=== PATIENT | female | born 2000 | race Caucasian/White ===

== ENCOUNTER 2019-03-28 05:51 | Day surgery (SDC) | payer BC ==
[2019-03-19 15:49] VITALS: BMI 39.9
[2019-03-28] MEDS ORDERED: VANCOMYCIN 1,000 MG VIAL (RESTRICTED TO ID ONLY) ONE (07:02)
[2019-03-28] MEDS ORDERED: PROPOFOL 20 ML ONE ×2 (07:04→08:04)
[2019-03-28] MEDS ORDERED: MIDAZOLAM HCL 2 MG/2 ML SINGLE DOSE VIAL ONE ×2 (07:04→07:13)
[2019-03-28] MEDS ORDERED: SUCCINYLCHOLINE CHLORIDE 200 MG/10 ML SYRINGE ONE (07:04)
[2019-03-28] MEDS ORDERED: SCOPOLAMINE HYDROBROMIDE 1 PATCH PATCH.TD72 ONE (07:10)
--- NOTE | 2019-03-28 07:12 | HP ---
Admitting History and Physical - Primary Care Physician PCP: Art Thapa - Admission Chief Complaint: Right knee ACL tear w/ instability History of Present Illness: 18 yo female with right knee acl tear. Followed by Dr. Velasquez (Ortho). Patient initially treated with conservative methods because she had no issues of instability. However, she returned to Dr. Velasquez office after she twisted her knee and felt it buckle. Subsequently developing swelling and increased pain in her right knee. 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: Alzheimer's, CVA, Dementia, Migraine, Multiple Sclerosis, Peripheral Neuropathy, Parkinson's, Seizure, Syncope, TIA, Vertigo, Other Cardiovascular: No: AFIB, Aneurysm, Aortic Insufficiency, Aortic Stenosis, CAD, CHF, Deep Vein Thrombosis, HTN, Hyperlipdemia, ID, Mitral Insufficiency, Mitral Stenosis, Murmur, Pulmonary Hypertension, Other Pulmonary: No: Asthma, Bronchitis, Cancer, COPD, O2 Dependent, Pneumonia, Previously Intubated, Pulmonary Embolus, Pulmonary Fibrosis, Sleep Apnea, Other Gastrointestinal: Yes: Other (Obese) Renal/: No: Renal Failure, Renal Inusuff, BPH, Cancer, Hematuria, Hemodialysis , Neurogenic Bladder, Renal Calculi, UTI, Other Reproductive: No: Ectopic , Endometriosis, Fibroids, PID, Polycystic Ovary Syndrome, Postmenopausal, Other ...LMP: 03/12/19 ...: No Heme/Onc: No: Anemia, B12 Deficiency, Bleeding Disorder, Cancer, Current Chemotherapy, Current Radiation Therapy, Hemochromatosis, Hypercoaguable State, Myeloproliferative Synd, Sickle Cell Disease, Sickle Cell Trait, Thrombocytopenia, Other Infectious Disease: No: AIDS, C-Diff, Herpes Zoster, HIV, MRSA, STD's, Tuberculosis, VREF, Other Psych: No: Addictions, Anxiety, Bipolar, Depression, Panic, Psychosis, Schizophrenia, Other Musculoskeletal: No: Bursitis, Chronic low back pain, Hemiparesis, Hemiplegia, Osteoarthritis, Paraplegia, Other Rheumatology: No: Fibromyalgia, Gout, Lupus, Rheumatoid Arthritis, Sarcoidosis, Vasculitis, Other ENT: No: Allergic Rhinitis, Sinusitis, Other Endocrine: No: Elgin's Disease, Burton's Disease, Diabetes Insipidus, Diabetes Mellitus, Hyperparathyroidism, Hyperthyroidism, Hypothyroidism, Osteopenia, SIADH, Other Dermatology: No: Basal Cell, Cellulitis, Eczema, Melanoma, Psoriasis, Squamous Cell, Other - Past Surgical History Past Surgical History: Yes: None - Smoking History Smoking history: Never smoked Have you smoked in the past 12 months: No - Alcohol/Substance Use Hx Alcohol Use: Yes (SOCIAL) - Social History Usual Living Arrangement: Yes: With Parent ADL: Independent History of Recent Travel: No Home Medications - Allergies Allergies/Adverse Reactions: Allergies Allergy/AdvReac Type Severity Reaction Status Date / Time No Known Allergies Allergy Verified 03/28/19 06:32 - Home Medications Home Medications: Ambulatory Orders Fexofenadine HCl [Leticia Allergy] 1 tab PO DAILY 03/19/19 Family Disease History - Family Disease History Family History: Unremarkable Review of Systems - Review of Systems Constitutional: reports: No Symptoms Eyes: reports: No Symptoms HENT: reports: No Symptoms Neck: reports: No Symptoms Cardiovascular: reports: No Symptoms Respiratory: reports: No Symptoms Gastrointestinal: reports: No Symptoms Genitourinary: reports: No Symptoms Breasts: reports: No Symptoms Reported Musculoskeletal: reports: No Symptoms Integumentary: reports: No Symptoms Neurological: reports: No Symptoms Endocrine: reports: No Symptoms Hematology/Lymphatic: reports: No Symptoms Psychiatric: reports: No Symptoms Physical Examination Vital Signs: Vital Signs Temperature 98.1 F 03/28/19 06:34 Pulse Rate 88 03/28/19 06:34 Respiratory Rate 16 03/28/19 06:34 Blood Pressure 131/93 03/28/19 06:34 O2 Sat by Pulse Oximetry (%) 99 03/28/19 06:43 Constitutional: Yes: Well Nourished, No Distress, Calm Eyes: Yes: WNL, Conjunctiva Clear, EOM Intact HENT: Yes: WNL, Atraumatic, Normocephalic Neck: Yes: WNL, Supple, Trachea Midline Cardiovascular: Yes: WNL, Regular Rate and Rhythm Respiratory: Yes: WNL, Regular, CTA Bilaterally Gastrointestinal: Yes: WNL, Normal Bowel Sounds, Soft, Abdomen, Obese Renal/: Yes: WNL Musculoskeletal: Yes: Other (RLE small knee effusion. Full extension. Normal Flexion. Tomer 3+ with no end point. No valgus or varus laxity) Edema: No Peripheral Pulses WNL: Yes Peripheral Pulses: Left Radial: 2+, Right Radial: 2+, Left Doralis Pedis: 2+, Right Dorsalis Pedis: 2+, Left Femoral: 2+, Right Femoral: 2+ Integumentary: Yes: WNL Neurological: Yes: WNL, Alert, Oriented ...Motor Strength: WNL Psychiatric: Yes: WNL, Alert, Oriented Problem List - Problems (1) Complete tear of anterior cruciate ligament of right knee Assessment/Plan: 19 yo female with right knee acl tear with instability. Her initial H&P which is located in her paper chart is out of date. After speaking with the patient, no new complaints or medications since completion of initial H&P. All information contained within this H&P was obtained from the first H&P. Patient her today for elective repair of her right knee ACL tear. All risks, benefits and alternatives have been discussed with patient by Dr. Velasquez. Patient wishes to proceed with surgery. Code(s): S83.511A - SPRAIN OF ANTERIOR CRUCIATE LIGAMENT OF RIGHT KNEE, INIT (2) Instability of right knee joint Code(s): M25.361 - OTHER INSTABILITY, RIGHT KNEE (3) Obese body habitus Code(s): E66.9 - OBESITY, UNSPECIFIED
[2019-03-28] MEDS ORDERED: BUPIVACAINE LIPOSOME/PF (EXPAREL) 266 MG/20 ML VIAL ONE (07:13)
[2019-03-28] MEDS ORDERED: SODIUM CHLORIDE 0.9% P/F 10 ML VIAL IJ ONE (07:14)
[2019-03-28] MEDS ORDERED: LIDOCAINE HCL/PF 2% SDV 5ML VIAL ONE (08:04)
[2019-03-28] MEDS ORDERED: DEXAMETHASONE SOD PHOSPHATE 4 MG/1 ML VIAL ONE (08:08)
[2019-03-28] MEDS ORDERED: ONDANSETRON 4 MG/2 ML VIAL ONE (08:08)
[2019-03-28] MEDS ORDERED: ceFAZolin SODIUM 1 GM VIAL ONE (08:08)
[2019-03-28] MEDS ORDERED: TRANEXAMIC ACID 1000 MG/10 ML VIAL ONE (08:08)
[2019-03-28] MEDS ORDERED: DESFLURANE GAS 240 ML BOTTLE IH ONE (09:12)
--- NOTE | 2019-03-28 09:36 | OP ---
Operative Note - Note: Operative Date: 03/28/19 Pre-Operative Diagnosis: Right knee instability s/p ACL tear Operation: Right knee ACLR Post-Operative Diagnosis: Same as Pre-op Surgeon: Edgar Velasquez Clinical Social Worker: Kasi Black Anesthesiologist/ADVERTISING COLUMNIST: Jason Chin Anesthesia: General Operative Report Dictated: Yes
--- NOTE | 2019-03-28 09:39 | DS ---
Physical Examination Vital Signs: Vital Signs Temperature 98.1 F 03/28/19 06:34 Pulse Rate 88 03/28/19 06:34 Respiratory Rate 16 03/28/19 06:34 Blood Pressure 131/93 03/28/19 06:34 O2 Sat by Pulse Oximetry (%) 99 03/28/19 06:43 Discharge Summary Reason For Visit: ANTERIOR CRUCIATE LIGAMENT TEAR RIGHT KNEE Current Active Problems Complete tear of anterior cruciate ligament of right knee (Acute) Instability of right knee joint (Acute) Obese body habitus (Acute) Condition: Stable - Instructions Diet, Activity, Other Instructions: Post Operative Instructions: ACL Reconstruction Dr. Edgar Velasquez 1. Pain following an ACL reconstruction is variable and can be significant. Some patients will have more pain than others. You have been provided with a prescription for medication that contains a narcotic. You are not allowed to drive while on this medication. You should take 1000 mg of Tylenol, three times a day while taking the oxycodone. Feel free to also take medications such as Ibuprofen or Naprosyn in addition to the pain medicine if you do not have any problems with the NSAID class of medications. You should take ASPIRIN 325 mg twice a day for 10 days to decrease the risks of blood clots. 2. You should not remove the bandages for 48 hours. . You may shower at that point. You are not allowed to bathe or go swimming until the sutures are removed. Put band-aids on the sutures after your shower and do not put any creams or lotions over the incisions. 3. You are allowed to put some of your weight on the leg. You should immediately start moving the knee. You MUST use crutches for assistance unless directed otherwise. 4. Getting the knee straight is your most important goal during the first 72 hours following an ACL reconstruction. Try not to lie down with a pillow under your knee. Instead the pillow should be under your ankle, thus allowing you to push your knee straight down into the bed. This is a very important milestone to achieve before your first post-surgery visit with me. 5. Swelling around the knee is normal following an ACL reconstruction. 6. The area around the knee and along the front of your chavez will also become swollen and black and blue. 7. Apply ice to the knee for 15 min every hour or so. You may continue this for as many days as you like. 8. Please call the office to schedule a visit to have your sutures removed. 9. If for any reason you believe you may have an infection or are concerned, please feel free to call me. I can be reached through our office number 24 hours a day. 10. Please call our office with any questions; we will review the surgical findings during your post operative visit. Disposition: HOME - Home Medications Comprehensive Discharge Medication List: Ambulatory Orders Fexofenadine HCl [Leticia Allergy] 1 tab PO DAILY 03/19/19
[2019-03-28] MEDS ORDERED: PROMETHAZINE HCL 25 MG/1 ML VIAL ONE (09:59)
--- NOTE | 2019-03-28 10:00 | SURG ---
Surgery Vending Manager Note Vending Manager: Kasi Black PA-C Date of Service: 03/28/19 Diagnosis: Right knee instability s/p ACL tear Procedure: Right knee ACL reconstruction I was present for the entirety of the operative procedure. For further detail, please refer to operative report. Visit type - Case Type Case Type: Scheduled - New patient This patient is new to me today: Yes Date on this admission: 03/28/19
[2019-03-28 11:07] VITALS: TEMP 97.8
[2019-03-28 11:59] VITALS: BP 131/75
[2019-03-28 12:08] VITALS: PULSE 80
[2019-03-28] MEDS ORDERED: PROMETHAZINE HCL 25 MG/1 ML VIAL IVPUSH PRN (13:08)
[2019-03-28] MEDS ORDERED: oxyCODONE HCL 5 MG TABLET PO PRN ×2 (13:08)
[2019-03-28] MEDS ORDERED: ONDANSETRON 4 MG/2 ML VIAL IVPUSH PRN (13:08)
[2019-03-28] MEDS ORDERED: LACTATED RINGERS SOLUTION 1,000 ML IV SCH (13:15)
--- NOTE | 2019-04-02 17:00 | PATH ---
Surgical Pathology Report Patient Name: KRYSTINA HDZ [facility]. Rec. #: [id number] /Age/Gender: 2000 (Age: 19) / F Account: [id number] Location: [facility] AMBUL[facility] Taken: 03/28/2019 Received: 03/28/2019 Reported: 04/02/2019 Physicians: Edgar Velasqeuz M.D. Specimen(s) Received SHAVINGS RIGHT KNEE Clinical History ACL tear R knee Final Diagnosis KNEE SHAVINGS, RIGHT, ACL REPAIR: FRAGMENTS OF DENSE FIBROCONNECTIVE TISSUE, ADIPOSE TISSUE, BONE, AND SYNOVIUM. Electronically Signed Latrice Ashby M.D. Gross Description Received in formalin, labeled "shavings, right knee" is a 2.8 x 2 x 0.4 cm aggregate of le and brown tissue. Straightening Roll Operator tissue is submitted in one cassette. AE/04/02/2019 ebram/04/02/2019
== END 2019-03-28 11:30 | disposition home or self-care (01) ==
LOC: FASU 05:51
PROVIDERS: ATTEND Orthopaedic Surgery
PROC: 0MRN47Z Replacement of Right Knee Bursa and Ligament with Autologous Tissue Substitute, Percutaneous Endoscopic Approach (ICD-10-PCS; principal; 2019-03-28 08:30)
DX: S83.512A Sprain of anterior cruciate ligament of left knee, initial encounter (principal); X58.XXXA Exposure to other specified factors, initial encounter; Y93.9 Activity, unspecified; Y92.9 Unspecified place or not applicable
CPT/HCPCS: 29888; C1713; 81025; 88305-TC; 94760